=== PATIENT | female | born 1955 | race Hispanic/Latino ===

== ENCOUNTER 2017-08-14 09:54 | Outpatient (CLI) | payer OTHER ==
--- NOTE | 2017-08-14 18:57 | XRay Report ---
FINAL REPORT EXAM: XR SPINE LUMBOSACRAL 2-3V HISTORY: BACK PAIN TECHNIQUE: Lumbar spine 2 views PRIORS: None. FINDINGS: Vertebral bodies demonstrate normal height and alignment. The disc spaces are within normal limits. There is no evidence of spondylolisthesis. Transverse and spinous processes are intact SI joints are unremarkable. Noted is a 1.4 by 0.8 centimeter calcification overlying the lower pole kidney IMPRESSION: Calcification within the left upper quadrant suspect nephrolithiasis Otherwise negative lumbar spine series
== END 2017-08-14 09:55 | disposition home or self-care (01) ==
LOC: XRAY 09:54
PROVIDERS: ATTEND Internal Medicine
DX: M54.5 Low back pain (principal); N28.89 Other specified disorders of kidney and ureter
CPT/HCPCS: 72100

== ENCOUNTER 2018-05-22 12:39 | Outpatient (CLI) | payer MEDICAID ==
--- NOTE | 2018-05-23 09:12 | Mammography Report ---
BILATERAL DIGITAL SCREENING MAMMOGRAM WITH CAD: 05/22/18 12:39:00 CLINICAL: Routine screening.Breast cancer survivor status post left partial mastectomy with radiation therapy in 2011. COMPARISON:08/29/16 FINDINGS: The breasts are heterogeneously dense, which may obscure small masses. Stable left upper outer postsurgical scar with surgical clips and benign calcifications. No mass, suspicious architectural distortion or suspicious calcifications. IMPRESSION: No mammographic evidence of malignancy. BI-RADS CATEGORY: 2 -- Benign RECOMMENDATION: Routine mammographic screening in one year. COMMENT: Patient follow-up letters are generated via our [employer] application.
== END 2018-05-22 12:40 | disposition home or self-care (01) ==
LOC: SPVWC 12:39
PROVIDERS: ATTEND Internal Medicine Hematology & Oncology
DX: Z12.31 Encounter for screening mammogram for malignant neoplasm of breast (principal)
CPT/HCPCS: 77067

== ENCOUNTER 2019-05-25 09:33 | Outpatient (CLI) | payer MEDICAID ==
--- NOTE | 2019-05-26 10:43 | Mammography Report ---
DIGITAL SCREENING MAMMOGRAM WITH CAD, 05/25/2019 INDICATION: Routine screening mammography. Breast cancer survivor status post left partial mastectomy with radiation therapy in 2011. TECHNIQUE: Digital bilateral 2D mammography was obtained in the craniocaudal and mediolateral obliq ue projections. This examination was interpreted with the benefit of Computer-Aided Detection analysi s. COMPARISON: 05/22/2018 FINDINGS: Breast Density: The breasts are heterogeneously dense, which may obscure small masses. There is no evidence of dominant mass, suspicious calcifications or architectural distortion in eithe r breast. Stable left upper outer benign postsurgical scar with surgical clips. Stable mild skin thic kening of the left breast. IMPRESSION: No mammographic evidence of malignancy. Follow up recommendation: Routine yearly BI-RADS Category 2: Benign. A "normal" or negative report should not discourage follow up or biopsy of a clinically significant f inding. A written summary of these findings will be mailed to the patient. The patient will be entered into a mammography reporting system which will generate a reminder letter for the patient's next appointmen t at the appropriate interval. The [employer] recommends yearly mammograms starting at age 40 and continuing as l joseph as a woman is in good health. Breast MRI is recommended for women with an approximate 20-25% or greater lifetime risk of breast cancer, including women with a strong family history of breast or ova jovani cancer or who have been treated for Hodgkin's disease. Signer Name: Jimenez Mendez MD Signed: 05/26/2019 10:38 AM Workstation Name: [id number]
== END 2019-05-25 09:34 | disposition home or self-care (01) ==
LOC: SPVWC 09:33
PROVIDERS: ATTEND Internal Medicine Hematology & Oncology
DX: Z12.31 Encounter for screening mammogram for malignant neoplasm of breast (principal)
CPT/HCPCS: 77067

== ENCOUNTER 2020-05-26 12:09 | Outpatient (CLI) | payer MEDICARE ==
--- NOTE | 2020-05-27 10:00 | Mammography Report ---
DIGITAL SCREENING MAMMOGRAM WITH CAD, 05/26/2020 INDICATION: Routine screening mammography. History of left breast cancer with left lumpectomy and rad iation TECHNIQUE: Digital bilateral 2D mammography was obtained in the craniocaudal and mediolateral obliq ue projections. This examination was interpreted with the benefit of Computer-Aided Detection analysi s. COMPARISON: 05/22/2018 and 05/25/2019 FINDINGS: Breast Density: There are scattered areas of fibroglandular density. There is no evidence of dominant mass, suspicious calcifications or architectural distortion in eithe r breast. Postlumpectomy and radiation changes are noted on the left. IMPRESSION: Follow up recommendation: Routine yearly BI-RADS Category 2: Benign. A "normal" or negative report should not discourage follow up or biopsy of a clinically significant f inding. A written summary of these findings will be mailed to the patient. The patient will be entered into a mammography reporting system which will generate a reminder letter for the patient's next appointmen t at the appropriate interval. The [employer] recommends yearly mammograms starting at age 40 and continuing as l joseph as a woman is in good health. Breast MRI is recommended for women with an approximate 20-25% or greater lifetime risk of breast cancer, including women with a strong family history of breast or ova jovani cancer or who have been treated for Hodgkin's disease. Signer Name: Andres Barnes MD Signed: 05/27/2020 9:55 AM Workstation Name: [id number]
== END 2020-05-26 12:10 | disposition home or self-care (01) ==
LOC: SPVWC 12:09
PROVIDERS: ATTEND Internal Medicine Hematology & Oncology
DX: Z12.31 Encounter for screening mammogram for malignant neoplasm of breast (principal); N64.89 Other specified disorders of breast
CPT/HCPCS: 77067